=== PATIENT | female | born 1980 | race Hispanic/Latino ===

== ENCOUNTER 2019-04-05 11:00 | Emergency (ER) | payer OTHER ==
[2019-04-05 11:05] VITALS: TEMP 98.6; O2SAT 99
[2019-04-05 11:06] VITALS: BMI 24.1
--- NOTE | 2019-04-05 11:43 | ED PDOC ---
HPI: Back Time Seen by Provider: 04/05/19 11:20 Chief Complaint (Nursing): Back Pain Chief Complaint (Provider): Back Pain History Per: Patient History/Exam Limitations: no limitations Onset/Duration Of Symptoms: Days (2) Additional Complaint(s): 39 y/o female presents to the ED complaining of left sided mid upper back pain radiating to the front associated with palpitation since last night. Patient states she was exercising 2 days ago. Patient denies shortness of breath, leg pain, or any other injuries. PMD: none provided Past Medical History Reviewed: Historical Data, Nursing Documentation, Vital Signs Vital Signs: Last Vital Signs Temp 98.6 F 04/05/19 11:04 Pulse 75 04/05/19 11:04 Resp 17 04/05/19 11:04 BP 117/67 04/05/19 11:04 Pulse Ox 99 04/05/19 11:04 Primary Care Provider: Non [facility] Provider, - Family History Family History: States: Unknown Family Hx - Immunization History Hx Tetanus Toxoid Vaccination: No Hx Influenza Vaccination: No Hx Pneumococcal Vaccination: No - Home Medications Home Medications: Ambulatory Orders Medication Instructions Recorded Cyclobenzaprine [Cyclobenzaprine 10 mg PO TID #10 tab 04/05/19 HCl] Naproxen [Naprosyn] 500 mg PO Q12H #20 tab 04/05/19 - Allergies Allergies/Adverse Reactions: Allergies Allergy/AdvReac Type Severity Reaction Status Date / Time No Known Allergies Allergy Verified 04/05/19 11:25 Review of Systems ROS Statement: Except As Marked, All Systems Reviewed And Found Negative Cardiovascular: Positive for: Palpitations Respiratory: Negative for: Shortness of Breath Musculoskeletal: Positive for: Back Pain (left sided upper back). Negative for: Leg Pain Physical Exam - Reviewed Nursing Documentation Reviewed: Yes Vital Signs Reviewed: Yes - Physical Exam Cardiovascular/Chest: Positive for: Regular Rate, Rhythm. Negative for: Murmur Respiratory: Positive for: Normal Breath Sounds. Negative for: Wheezing Back: Positive for: Normal Inspection, Vertebral Tenderness (Para-thoracic tenderness ), Other (No midline spinal deformity) Extremity: Positive for: Normal ROM. Negative for: Tenderness (calf), Swelling (calf) - ECG O2 Sat by Pulse Oximetry: 99 Medical Decision Making Medical Decision Making: Time:[id number] Impression: Plan: -EKG -Chest x-ray ------- ScribeAttestation: Documented by Diana Loyd, acting as ascribefor Jeovanny Marques ProviderScribeAttestation: All medical record entries made by Fran at my direction and personally dictated by me. I have reviewed the chart and agree that the record accurately reflects my personal performance of the history, physical exam, medical decision making, and the department course for this patient. I have also personally directed, reviewed, and agree with the discharge instructions and disposition. Disposition - Clinical Impression Clinical Impression: Back strain - Patient ED Disposition Is Patient to be Admitted: No Counseled Patient/Family Regarding: Studies Performed, Diagnosis, Need For Followup, Rx Given - Disposition Referrals: [facility] [Outside] Disposition: Routine/Home Disposition Time: 13:18 Condition: FAIR Prescriptions: Cyclobenzaprine [Cyclobenzaprine HCl] 10 mg PO TID #10 tab Naproxen [Naprosyn] 500 mg PO Q12H #20 tab Instructions: Muscle Strain Forms: [employer] (Tristanian)
[2019-04-05] MEDS ORDERED: Naproxen 500 MG TAB PO STA (13:25)
[2019-04-05] MEDS ORDERED: Naproxen 500 MG TAB PO ONE (13:30)
[2019-04-05 13:56] VITALS: BP 118/70; PULSE 72; RESP 18
--- NOTE | 2019-04-05 15:04 | RAD ---
Date of service: 04/05/2019 HISTORY: Back pain COMPARISON: No prior. TECHNIQUE: Chest PA and lateral views FINDINGS: LUNGS: No active pulmonary disease. PLEURA: No significant pleural effusion identified. No pneumothorax apparent. CARDIOVASCULAR: No aortic atherosclerotic calcification present. No radiographic findings to suggest acute or significant cardiovascular disease. OSSEOUS STRUCTURES: No significant abnormalities. VISUALIZED UPPER ABDOMEN: Normal. OTHER FINDINGS: None. IMPRESSION: No active disease.
--- NOTE | 2019-04-05 17:50 | CARD ---
APPROVED REPORT Date of service: 04/05/2019 EKG Measurement Heart [id number] <Conclusion> Normal sinus rhythm Normal ECG
== END 2019-04-05 13:35 | disposition home or self-care (01) ==
LOC: H.ER 11:00
DX: S39.012A Strain of muscle, fascia and tendon of lower back, initial encounter (principal)